=== PATIENT | female | born 1965 | race Caucasian/White ===

== ENCOUNTER 2021-04-22 12:30 | Outpatient (CLI) | payer OTHER, SELFPAY | END 2021-04-22 12:31 | disposition home or self-care (01) | LOC: SLEEP 04-23 13:56 | PROVIDERS: Family Provider Family Medicine; Visit Provider Family Medicine | DX: G47.33 Obstructive sleep apnea (adult) (pediatric) (principal) | CPT/HCPCS: G0399 ==